=== PATIENT | female | born 1935 | race Caucasian/White ===

== ENCOUNTER 2016-11-29 09:30 | Emergency (ER) | payer MEDICARE, BC ==
[2016-11-29] MEDS ORDERED: Acyclovir 200 MG Cap PO ONE (09:55)
--- NOTE | 2016-11-29 10:25 | EDM.PDOC ---
ED HPI GENERAL MEDICAL PROBLEM - General Chief Complaint: General Stated Complaint: HEADACHE, RASH Time Seen by Provider: 11/29/16 10:05 Source of Information: Reports: Patient History Limitations: Reports: No limitations - History of Present Illness Onset: gradual Onset Date: 11/27/16 Duration: Day(s): Location: Reports: face Quality: Reports: Ache Severity: moderate Improves with: Reports: None Worsens with: Reports: None Headache Pain Score (Numeric/FACES): 5 - Related Data Allergies Allergy/AdvReac Type Severity Reaction Status Date / Time No Known Allergies Allergy Verified 11/29/16 09:46 Home Meds: Home Meds Acetaminophen [Tylenol] 650 mg PO Q6H PRN 09/05/13 [History] Ferrous Sulfate 324 mg PO DAILY 09/05/13 [History] Multivitamin [Multi-Vitamin Daily] 1 each PO DAILY 09/05/13 [History] amLODIPine Besylate [Amlodipine Besylate] 5 mg PO DAILY 09/05/13 [History] Aspirin [Ecotrin] 325 mg PO DAILY 08/06/15 [History] atorvaSTATin [Lipitor] 80 mg PO BEDTIME 08/06/15 [History] Insulin Glarg,Human.Rec.Analog [LantUS Solostar] 10 units SUBCUT BEDTIME [History] Atenolol [Atenolol] 25 mg PO DAILY 09/15/16 [History] Calcium Carb/D3/Magnesium/Zinc [Ricki Mag Zinc + D3] 1 tab PO DAILY 09/15/16 [ History] Past Medical History HEENT History: Reports: Hard of hearing Cardiovascular History: Reports: High cholesterol, Hypertension Other Musculoskeletal History: CVA left sided left lower weakness. Neurological History: Reports: TIA Endocrine/Metabolic History: Reports: Diabetes, type II - Infectious Disease History Infectious Disease History: Reports: Shingles - Past Surgical History GI Surgical History: Reports: Cholecystectomy Social & Family History - Family History Family Medical History: Noncontributory - Tobacco Use Smoking Status *Q: Never Smoker Second Hand Smoke Exposure: No - Caffeine Use Caffeine Use: Reports: Coffee, Soda - Recreational Drug Use Recreational Drug Use: No ED ROS GENERAL - Review of Systems Review Of Systems: See Below Constitutional: Reports: malaise, weakness, fatigue HEENT: Reports: Ear pain, Eye pain Respiratory: Reports: No Symptoms Cardiovascular: Reports: No symptoms Endocrine: Reports: no symptoms GI/Abdominal: Reports: No symptoms : Reports: no symptoms Musculoskeletal: Reports: no symptoms Skin: Reports: no symptoms Neurological: Reports: No Symptoms Psychiatric: Reports: No symptoms Hematologic/Lymphatic: Reports: no symptoms Immunologic: Reports: no symptoms ED EXAM, GENERAL - Physical Exam Exam: See Below Free Text/Narrative:: Rash on left side of forehead from scalp line all the way down around left eye. No lesions noted on the cornea at this time. Exam Limited By: No limitations General Appearance: alert, anxious Eye Exam: bilateral eye: normal inspection, PERRL Ears: normal external exam Ear Exam: bilateral ear: canal normal, TM normal Nose: normal inspection, normal mucosa Throat/Mouth: Normal inspection Head: atraumatic, normocephalic Neck: normal inspection, supple Respiratory/Chest: no respiratory distress Cardiovascular: normal peripheral pulses GI/Abdominal: normal bowel sounds, soft, non tender Extremities: normal inspection, normal range of motion Neurological: alert, oriented Skin Exam: Erythema, Rash Lymphatic: no adenopathy Course - Vital Signs Last Recorded V/S: Last Vital Signs Temp 99.2 F 11/29/16 09:35 Pulse 71 11/29/16 10:38 Resp 16 11/29/16 09:35 BP 148/83 H 11/29/16 10:38 Pulse Ox 95 11/29/16 09:35 - Orders/Labs/Meds Orders: Active Orders 24 hr Category Date Time Status CMP [COMPREHENSIVE METABOLIC PN,CMP] [CHEM] Stat Lab 11/29/16 09:56 Ordered Labs: Laboratory Tests 11/29/16 Range/Units 09:56 WBC 10.6 H (5.0-10.0) 10^3/uL RBC 3.54 L (4.00-5.50) 10^6/uL Hgb 10.9 L (12.0-16.0) g/dL Hct 32.7 L (37.0-47.0) % MCV 92.4 (82.0-94.0) fL MCH 30.8 (27.0-32.0) pg MCHC 33.3 (33.0-38.0) g/dL RDW Coeff of Gian 12.9 (11.0-15.0) % Plt Count 277 (150-400) 10^3/uL Neut % (Auto) 79.2 (35-85) % Lymph % (Auto) 14.0 (10-55) % Ferry % (Auto) 5.4 (0-16) % Eos % (Auto) 1.3 (0-5) % Baso % (Auto) 0.1 (0-3) % Neut # 8.42 H (1.80-7.00) 10^3/uL Lymph # 1.49 (1.00-4.80) 10^3/uL [place]erry # 0.57 (0.00-0.80) 10^3/uL Eos # 0.14 (0.00-0.45) 10^3/uL Baso # 0.01 10^3/uL Meds: Medications Discontinued Medications Generic Name Dose Route Start Last Admin Trade Name Freq PRN Reason Stop Dose Admin Acyclovir 800 mg 11/29/16 09:55 11/29/16 10:12 Zovirax PO 11/29/16 09:56 800 mg ONETIME ONE Administration Departure - Departure Time of Disposition: 10:41 Disposition: Home, Self-Care 01 Condition: fair Clinical Impression: Shingles Instructions: Shingles, [id number] Referrals: Angel Luis Rucker MD [Primary Care Provider] - Forms: ED Department Discharge Additional Instructions: Follow up with the eye doctor as soon as you leave here. Take your medications as ordered. - My Orders Last 24 Hours: My Active Orders 11/29/16 09:56 CMP [COMPREHENSIVE METABOLIC PN,CMP] [CHEM] Stat - Assessment/Plan Last 24 Hours: My Active Orders 11/29/16 09:56 CMP [COMPREHENSIVE METABOLIC PN,CMP] [CHEM] Stat
[2016-11-29 10:43] VITALS: BP 148/83
[2016-11-29 10:44] LABS: CHLORIDE,CL 102 mEq/L (98-106); SODIUM,NA 138 mEq/L (136-145)
== END 2016-11-29 10:55 | disposition home or self-care (01) ==
LOC: CC.ED 09:30
DX: B02.9 Zoster without complications (principal); E78.00 Pure hypercholesterolemia, unspecified; I10 Essential (primary) hypertension; Z86.73 Personal history of transient ischemic attack (TIA), and cerebral infarction without residual deficits; E11.9 Type 2 diabetes mellitus without complications; Z90.49 Acquired absence of other specified parts of digestive tract; Z79.82 Long term (current) use of aspirin; Z79.4 Long term (current) use of insulin; Z79.899 Other long term (current) drug therapy
CPT/HCPCS: 36415; 80053; 85025; 99284; A9270

== ENCOUNTER → 2018-02-17 | Day surgery (SDC) | payer MEDICARE, BC ==
[~2018-02-17] MED LIST: Lactated Ringers 1,000 ML IV SCH; Meperidine PF 50 MG/ML Syringe IV ONE; Meperidine PF 50 MG/ML Syringe ONE; Midazolam 1 MG/ML 2 ML SDV IV ONE; Midazolam 1 MG/ML 2 ML SDV ONE
[2018-02-17 08:20] VITALS: BP 138/47
--- NOTE | 2018-02-17 11:21 | OR ---
DATE OF OPERATION: 02/17/2018 PREOPERATIVE DIAGNOSIS: FAMILY HISTORY OF COLON CANCER. POSTOPERATIVE DIAGNOSIS: FAMILY HISTORY OF COLON CANCER. SURGEON: Izaiah Walker MD PROCEDURE: FULL-LENGTH COLONOSCOPY WITH POLYP REMOVAL X8. ANESTHESIA: Conscious sedation. COMPLICATIONS: None. SPECIMEN: Seven appearing to be small sessile possibly hyperplastic with one larger villous adenoma, approximately a centimeter in size. FINDINGS: 1. Full-length colonoscopy. 2. [id number] sigmoid diverticulosis. 3. One villous adenoma hepatic flexure. 4. Seven small sessile/hyperplastic polyps. RECOMMENDATIONS: Followup up pending path report. INDICATIONS: The patient has a family history of colon cancer in a brother and two children. She has had multiple colonoscopies with polyps removed in the past. She is due for a routine followup. DESCRIPTION OF PROCEDURE: The patient was prepped and draped, placed in the left lateral decubitus position. A lubricated Olympus colonoscope was inserted and easily advanced to the cecum. Direct visualization of the ileocecal valve, appendiceal orifice was accomplished. The bowel prep was fine. Right in the cecal pouch, the patient had a small flat sessile polyp removed easily with 2 forceps biopsies. In the proximal ascending colon, she had another small sessile polyp also removed with forceps biopsy x2. She had a cluster of 4 polyps right at the hepatic flexure. One of the these was a larger villous adenoma, removed with a snare and suctioned a polyp trap # one. The two smaller sessile polyps also removed with snare and suctioned a polyp traps two and three respectively. In the mid transverse colon, six polyp was seen, it was a small sessile polyp also removed with snare and forceps biopsy. There was cut through it with a snare and a small little piece was left removed with forceps. Rest of the transverse and descending colons appeared benign. The patient does have scattered diverticular disease throughout most of the sigmoid and rectosigmoid area, [id number] in severity. Two more small polyps were seen, likely hyperplastic in the sigmoid and distal sigmoid area, both removed with forceps biopsies x2 in their entirety. The rectal vault was benign. Retroflexion scope in the rectum showed no anal lesions. Air was suctioned. Scope was removed without complication. TAM/REGINA /[id number]
== END ==
LOC: CC.SDS 06:22
PROVIDERS: ATTEND Family Medicine
DX: Z12.11 Encounter for screening for malignant neoplasm of colon (principal); K57.30 Diverticulosis of large intestine without perforation or abscess without bleeding; D12.0 Benign neoplasm of cecum; D12.2 Benign neoplasm of ascending colon; D12.3 Benign neoplasm of transverse colon; D12.5 Benign neoplasm of sigmoid colon; D64.9 Anemia, unspecified; M19.90 Unspecified osteoarthritis, unspecified site; M46.1 Sacroiliitis, not elsewhere classified; M81.0 Age-related osteoporosis without current pathological fracture; N85.2 Hypertrophy of uterus; E11.9 Type 2 diabetes mellitus without complications; E78.5 Hyperlipidemia, unspecified; E55.9 Vitamin D deficiency, unspecified; J20.9 Acute bronchitis, unspecified; Z80.0 Family history of malignant neoplasm of digestive organs; Z79.4 Long term (current) use of insulin; Z79.82 Long term (current) use of aspirin; Z79.899 Other long term (current) drug therapy
CPT/HCPCS: 45380; 45385; 82962; J2175; J2250; J7120

== ENCOUNTER 2018-09-29 05:12 | Emergency (ER) | payer MEDICARE, BC ==
--- NOTE | 2018-09-29 05:48 | EDM.PDOC ---
ED HPI GENERAL MEDICAL PROBLEM - General Chief Complaint: General Stated Complaint: general weakness Time Seen by Provider: 09/29/18 05:39 Source of Information: Reports: Patient, EMS History Limitations: Reports: No Limitations - History of Present Illness INITIAL COMMENTS - FREE TEXT/NARRATIVE: Pt states that she has been feeling very weak and has been having diarrhea for the last 1.5 days. She was lightheaded and decided to call the ambulance. When arriving she denied any specific pain. She is resting quietly on exam. No SOB. She states that she is currently on Prednisone 40 and Bactrim after having a lung biopsy the end of July and her blood sugars have been running high since then. She then had a laminectomy in [place] 2 weeks ago and has been feeling well with that. She has noted an increase in edema to both feet and more swelling in her face. Has noted that "my eyes are even swollen" Denies any chest pains recently. Had 2 diarrhea stools during the night. States that she is on iron so her stools have been black since then. Did not notice any blood in stools. Denies any knowledge of kidney failure that she is being treated for or that she was told about in her recent visits with above procedures. Onset: Gradual Location: Reports: Generalized Associated Symptoms: Reports: Nausea/Vomiting, Weakness - Related Data Allergies Allergy/AdvReac Type Severity Reaction Status Date / Time No Known Allergies Allergy Verified 09/29/18 05:49 Home Meds: Home Meds Acetaminophen [Tylenol] 650 mg PO Q6H PRN 09/05/13 [History] Ferrous Sulfate 324 mg PO DAILY 09/05/13 [History] Multivitamin [Multi-Vitamin Daily] 1 each PO DAILY 09/05/13 [History] amLODIPine Besylate [Amlodipine Besylate] 5 mg PO DAILY 09/05/13 [History] atorvaSTATin [Lipitor] 80 mg PO BEDTIME 08/06/15 [History] Insulin Glarg,Human.Rec.Analog [LantUS Solostar] 15 units SUBCUT BEDTIME [History] Atenolol 25 mg PO DAILY 09/15/16 [History] Calcium Carb/D3/Magnesium/Zinc [Ricki Mag Zinc + D3] 1 tab PO DAILY 09/15/16 [ History] Cholecalciferol (Vitamin D3) [Vitamin D3] 2,000 unit PO DAILY 01/27/18 [History] Sulfamethoxazole/Trimethoprim [Sulfamethoxazole-Tmp Ds Tablet] 1 tab PO ASDIRECTED 09/29/18 [History] predniSONE [Prednisone] 40 mg PO DAILY 09/29/18 [History] Past Medical History HEENT History: Reports: Hard of Hearing Cardiovascular History: Reports: High Cholesterol, Hypertension Other Musculoskeletal History: CVA left sided left lower weakness. Neurological History: Reports: TIA Endocrine/Metabolic History: Reports: Diabetes, Type II - Infectious Disease History Infectious Disease History: Reports: Shingles - Past Surgical History GI Surgical History: Reports: Cholecystectomy Social & Family History - Family History Family Medical History: Noncontributory - Caffeine Use Caffeine Use: Reports: Coffee Caffeine Use Comment: LAST COFFEE YESTERDAY - Living Situation & Occupation Living situation: Reports: , with Spouse Occupation: Retired ED ROS GENERAL - Review of Systems Review Of Systems: See Below Constitutional: Reports: Weakness, Fatigue. Denies: Fever, Chills HEENT: Reports: Other (eyes swollen) Respiratory: Denies: Shortness of Breath, Cough Cardiovascular: Reports: Edema. Denies: Chest Pain, Palpitations Endocrine: Reports: Fatigue, High Glucose GI/Abdominal: Reports: Black Stool, Diarrhea, Nausea. Denies: Abdominal Pain, Bloody Stool : Reports: No Symptoms Musculoskeletal: Reports: No Symptoms, Back Pain (had recent back surgery) Skin: Reports: Pallor. Denies: Rash Neurological: Denies: Confusion ED EXAM, GENERAL - Physical Exam Exam: See Below Exam Limited By: No Limitations General Appearance: Alert, WD/WN, Mild Distress. No: Anxious Eye Exam: Bilateral Eye: PERRL (conjunctival swelling noted.) Ears: Normal External Exam, Normal Canal, Normal TMs Nose: Normal Inspection Throat/Mouth: Normal Inspection, Normal Oropharynx, No Airway Compromise Head: Atraumatic, Normocephalic Neck: Normal Inspection, Supple, Non-Tender, Full Range of Motion Respiratory/Chest: No Respiratory Distress, Lungs Clear (decreased to bases due to poor inspiratory effort.) Cardiovascular: Regular Rate, Rhythm GI/Abdominal: Soft, Non-Tender, Other (rectal exam negative for masses. Stool positive for occult blood. Stool is black.). No: Guarding Back Exam: Other (well healed surgical scar noted.) Extremities: Pedal Edema (2-3+ Edema noted pitting blaterally.) Neurological: Alert, Oriented Skin Exam: Warm, Dry, Pallor Course - Vital Signs Last Recorded V/S: Last Vital Signs Temp 98.1 F 09/29/18 08:31 Pulse 71 09/29/18 08:31 Resp 20 09/29/18 08:31 BP 130/62 09/29/18 08:31 Pulse Ox 100 09/29/18 08:31 - Orders/Labs/Meds Orders: Active Orders 24 hr Category Date Time Status EKG Documentation Completion [RC] STAT Care 09/29/18 05:42 Active Chest 1V Frontal [CR] Stat Exams 09/29/18 07:16 Taken RED BLOOD CELLS LP [BBK] Stat Lab 09/29/18 07:35 Results TYPE AND SCREEN [BBK] Stat Lab 09/29/18 07:35 Results Sodium Chloride 0.9% [Normal Saline] 1,000 ml Med 09/29/18 07:00 Active IV ASDIRECTED Transfuse PRBC [Transfuse Red Blood Cells] [COMM] Stat Oth 09/29/18 07:13 Ordered Medication Orders Sodium Chloride (Normal Saline) 1,000 mls @ 50 mls/hr IV ASDIRECTED DIAMOND Last Admin: 09/29/18 07:01 Dose: 50 mls/hr Labs: Laboratory Tests 09/29/18 09/29/18 09/29/18 Range/Units 05:35 05:55 05:55 WBC 17.2 H (5.0-10.0) 10^3/uL RBC 2.01 L (4.00-5.50) 10^6/uL Hgb 6.1 L* (12.0-16.0) g/dL Hct 19.2 L* (37.0-47.0) % MCV 95.5 H (82.0-94.0) fL MCH 30.3 (27.0-32.0) pg MCHC 31.8 L (33.0-38.0) g/dL RDW Coeff of Gian 14.3 (11.0-15.0) % Plt Count 175 (150-400) 10^3/uL Add Manual Diff Yes Neutrophils % (Manual) 93 H (35-85) % Lymphocytes % (Manual) 3 L (21-55) % Monocytes % (Manual) 4 (2-12) % Sodium 140 (136-145) mEq/L Potassium 6.0 H (3.5-5.0) mEq/L Chloride 109 H (98-106) mEq/L Carbon Dioxide 20 L (21-32) mmol/L BUN 101 H* D (7-18) mg/dL Creatinine 4.2 H* (0.6-1.0) mg/dL Est Cr Clr Drug Dosing 8.17 mL/min Estimated GFR (MDRD) 10 L (>=60) mL/min Glucose 415 H* D (75-99) mg/dL Calcium 7.6 L (8.4-10.1) mg/dL Total Bilirubin 0.3 (0.0-1.0) mg/dL AST 15 (15-37) U/L ALT 36 (12-78) U/L Alkaline Phosphatase 72 (46-116) U/L Lactate Dehydrogenase 292 H (100-190) U/L Creatine Kinase 42 (21-215) U/L Troponin I 0.064 H (0.00-0.06) ng/mL NT-Pro-B Natriuret Pep 9406 H (0-1000) pg/mL Total Protein 3.6 L (6.4-8.2) g/dL Albumin 1.7 L (3.4-5.0) g/dL Urine Color Yellow (YELLOW) Urine Appearance Clear (CLEAR) Urine pH 5.5 (4.5-8.0) Ur Specific [place] 1.020 (1.003-1.020) Urine Protein >=300 H (NEGATIVE) mg/dL Urine Glucose (UA) 500 H (NEGATIVE) mg/dL Urine Ketones Negative (NEGATIVE) mg/dL Urine Occult Blood Moderate H (NEGATIVE) Urine Nitrite Negative (NEGATIVE) Urine Bilirubin Negative (NEGATIVE) Urine Urobilinogen 0.2 (0.2-1.0) EU/dL Ur Leukocyte Esterase Small H (NEGATIVE) Blood Type Gel Antibody Screen Crossmatch 09/29/18 Range/Units 07:35 WBC (5.0-10.0) 10^3/uL RBC (4.00-5.50) 10^6/uL Hgb (12.0-16.0) g/dL Hct (37.0-47.0) % MCV (82.0-94.0) fL MCH (27.0-32.0) pg MCHC (33.0-38.0) g/dL RDW Coeff of Gian (11.0-15.0) % Plt Count (150-400) 10^3/uL Add Manual Diff Neutrophils % (Manual) (35-85) % Lymphocytes % (Manual) (21-55) % Monocytes % (Manual) (2-12) % Sodium (136-145) mEq/L Potassium (3.5-5.0) mEq/L Chloride (98-106) mEq/L Carbon Dioxide (21-32) mmol/L BUN (7-18) mg/dL Creatinine (0.6-1.0) mg/dL Est Cr Clr Drug Dosing mL/min Estimated GFR (MDRD) (>=60) mL/min Glucose (75-99) mg/dL Calcium (8.4-10.1) mg/dL Total Bilirubin (0.0-1.0) mg/dL AST (15-37) U/L ALT (12-78) U/L Alkaline Phosphatase (46-116) U/L Lactate Dehydrogenase (100-190) U/L Creatine Kinase (21-215) U/L Troponin I (0.00-0.06) ng/mL NT-Pro-B Natriuret Pep (0-1000) pg/mL Total Protein (6.4-8.2) g/dL Albumin (3.4-5.0) g/dL Urine Color (YELLOW) Urine Appearance (CLEAR) Urine pH (4.5-8.0) Ur Specific [place] (1.003-1.020) Urine Protein (NEGATIVE) mg/dL Urine Glucose (UA) (NEGATIVE) mg/dL Urine Ketones (NEGATIVE) mg/dL Urine Occult Blood (NEGATIVE) Urine Nitrite (NEGATIVE) Urine Bilirubin (NEGATIVE) Urine Urobilinogen (0.2-1.0) EU/dL Ur Leukocyte Esterase (NEGATIVE) Blood Type O POSITIVE Gel Antibody Screen Negative Crossmatch See Detail Meds: Medications Generic Name Dose Route Start Last Admin Trade Name Freq PRN Reason Stop Dose Admin Sodium Chloride 1,000 mls @ 50 mls/hr 09/29/18 07:00 09/29/18 07:01 Normal Saline IV 50 mls/hr ASDIRECTED DIAMOND Administration Discontinued Medications Generic Name Dose Route Start Last Admin Trade Name Freq PRN Reason Stop Dose Admin Furosemide 20 mg 09/29/18 07:16 09/29/18 07:30 Lasix IVPUSH 09/29/18 07:17 20 mg ONETIME ONE Administration Insulin Human Regular 10 unit 09/29/18 07:14 09/29/18 07:29 Novolin R SUBCUT 09/29/18 07:15 10 unit ONETIME ONE Administration Protocol - Re-Assessments/Exams Free Text/Narrative Re-Assessment/Exam: 09/29/18 07:[address] Does recommend that she get 10u regular insulin sq, 20 mg Lasix now IV, and to transfuse with 1 unit PRBC prior to transfer. Pt will be transferred per ALS ambulance. Departure - Departure Time of Disposition: 07:45 Disposition: DC/Tfer to [facility] 02 Condition: Critical Clinical Impression: Renal failure as complication of care GI bleeding Qualifiers: GI bleed type/associated pathology: melena Qualified Code(s): K92.1 - Melena Anemia Qualifiers: Anemia type: unspecified type Qualified Code(s): D64.9 - Anemia, unspecified Diabetes type 2, uncontrolled Qualifiers: Glycemic state: with hyperglycemia Qualified Code(s): E11.65 - Type 2 diabetes mellitus with hyperglycemia - Discharge Information *PRESCRIPTION DRUG MONITORING PROGRAM REVIEWED*: Not Applicable *COPY OF PRESCRIPTION DRUG MONITORING REPORT IN PATIENT JUAN: Not Applicable Referrals: Sully Dawson GROUP CARE WORKER [Primary Care Provider] - Forms: ED Department Discharge - Problem List & Annotations (1) GI bleeding SNOMED Code(s): 08058477 Code(s): K92.2 - GASTROINTESTINAL HEMORRHAGE, UNSPECIFIED Status: Acute Priority: High Current Visit: Yes Qualifiers: GI bleed type/associated pathology: melena Qualified Code(s): K92.1 - Melena (2) Anemia SNOMED Code(s): 736023200 Code(s): D64.9 - ANEMIA, UNSPECIFIED Status: Acute Priority: High Current Visit: Yes Qualifiers: Anemia type: unspecified type Qualified Code(s): D64.9 - Anemia, unspecified (3) Diabetes type 2, uncontrolled SNOMED Code(s): 16789702, 140451964 Code(s): E11.65 - TYPE 2 DIABETES MELLITUS WITH HYPERGLYCEMIA Status: Acute Priority: High Current Visit: Yes Qualifiers: Glycemic state: with hyperglycemia Qualified Code(s): E11.65 - Type 2 diabetes mellitus with hyperglycemia (4) Renal failure as complication of care SNOMED Code(s): 742535018 Code(s): T88.8XXA - OTH COMPLICATIONS OF SURGICAL AND MEDICAL CARE, NEC, INIT ; N19 - UNSPECIFIED KIDNEY FAILURE Status: Acute Priority: High Current Visit: Yes - Problem List Review Problem List Initiated/Reviewed/Updated: Yes - My Orders Last 24 Hours: My Active Orders 09/29/18 05:42 EKG Documentation Completion [RC] STAT 09/29/18 07:00 Sodium Chloride 0.9% [Normal Saline] 1,000 ml IV ASDIRECTED 09/29/18 07:13 Transfuse PRBC [Transfuse Red Blood Cells] [COMM] Stat 09/29/18 07:16 Chest 1V Frontal [CR] Stat 09/29/18 07:35 RED BLOOD CELLS LP [BBK] Stat TYPE AND SCREEN [BBK] Stat - Assessment/Plan Last 24 Hours: My Active Orders 09/29/18 05:42 EKG Documentation Completion [RC] STAT 09/29/18 07:00 Sodium Chloride 0.9% [Normal Saline] 1,000 ml IV ASDIRECTED 09/29/18 07:13 Transfuse PRBC [Transfuse Red Blood Cells] [COMM] Stat 09/29/18 07:16 Chest 1V Frontal [CR] Stat 09/29/18 07:35 RED BLOOD CELLS LP [BBK] Stat TYPE AND SCREEN [BBK] Stat Plan: Transfer to ALS with blood transfusing with cardiac and oxygen monitoring. Risks of being transferred discussed with pt and to include risk of condition worsening enroute requiring more care, worsening of bleeding. Benefits would include that she would have specialized care and ICU available. Risks of non-transfer would include as condition would get worse and not able to have ICU available. Pt and both voice understanding and would like to transfer to .
[2018-09-29] MEDS ORDERED: Sodium Chloride 0.9% 1,000 ML IV SCH (07:00)
[2018-09-29] MEDS ORDERED: Insulin Regular, Human 100 Units/ML 10 ML Vial SUBCUT ONE (07:14)
[2018-09-29] MEDS ORDERED: Furosemide 20 MG/2 ML VIAL IVPUSH ONE (07:16)
[2018-09-29 08:32] VITALS: BP 130/62
== END 2018-09-29 09:08 ==
LOC: CC.ED 05:12
DX: N19 Unspecified kidney failure (principal); E11.65 Type 2 diabetes mellitus with hyperglycemia; K92.1 Melena; D64.9 Anemia, unspecified; I10 Essential (primary) hypertension; E78.00 Pure hypercholesterolemia, unspecified; Z79.899 Other long term (current) drug therapy; Z79.4 Long term (current) use of insulin
CPT/HCPCS: 36415; 36430; 71045; 80053; 81003; 82550; 83615; 83880; 84484; 85025; 86850; 86900; 86901; 86920; 86922; 93005; 96361; 96374; 99285; J1940; J7030; P9016; J1815-GY